=== PATIENT | female | born 1990 ===

== ENCOUNTER 2020-07-13 14:33 | Outpatient (CLI) | payer MEDICAID ==
[2020-07-13 15:39] VITALS: BP 106/63
[2020-07-13 18:17] LABS: Bacteria,Urine 4+ /HPF (Negative); Bilirubin,Urine NEG (Negative); Blood,Urine NEG (Negative); Color,Urine Yellow (Yellow); Protein,Urine <15 mg/dL mg/dL (Negative); Urobilinogen,Urine < 2.0 mg/dL (<2.0)
== END 2020-07-13 19:40 | disposition home or self-care (01) ==
LOC: TRG 14:33 → APU 14:35 → TRG 19:40
PROVIDERS: ATTEND Obstetrics & Gynecology
DX: O26.893 Other specified pregnancy related conditions, third trimester (principal); R10.9 Unspecified abdominal pain; Z3A.31 31 weeks gestation of pregnancy
CPT/HCPCS: 81001

== ENCOUNTER 2020-08-18 05:55 | Inpatient (IN) | payer MEDICAID ==
[2020-08-18] MEDS ORDERED: METOCLOPRAMIDE 10 MG/2 ML INJ IV ONE ×2 (06:51→13:00)
[2020-08-18] MEDS ORDERED: BICITRA ORAL LIQD 30ML PO ONE ×2 (06:51→13:00)
[2020-08-18] MEDS ORDERED: FAMOTIDINE 20 MG/2 ML INJ IV ONE ×2 (06:51→13:00)
[2020-08-18] MEDS ORDERED: LACTATED RINGERS 1,000 ML IV SCH (07:00)
[2020-08-18 07:38] LABS: Basophils % (Auto) 0.3 % (0.0-1.8); Eosinophils # (Auto) 0.1 K/mm3 (0.0-0.4); Eosinophils % (Auto) 1.1 % (0.0-4.3); Hematocrit 35.7 % (30.3-42.9); Hemoglobin 12.5 gm/dl (10.1-14.3); Lymphocytes # (Auto) 1.7 K/mm3 (1.2-5.4); Lymphocytes % (Auto) 19.9 % (13.4-35.0); Mean Corpuscular HGB Conc 35 % (30-34); Mean Corpuscular Volume 82 fl (79-97); Monocytes # (Auto) 0.6 K/mm3 (0.0-0.8); Monocytes % (Auto) 7.4 % (0.0-7.3); Platelet Count 318 K/mm3 (140-440); Red Blood Count 4.33 M/mm3 (3.65-5.03); Red Cell Distribution Width 15.1 % (13.2-15.2)
--- NOTE | 2020-08-18 10:11 | History and Physical Report ---
History of Present Illness Date of examination: 08/18/20 Date of admission: 08/18/20 09:20 Chief complaint: contractions, LOF, prior c/s x 2 History of present illness: 30 yo at 37w0d c/b prior c/s x 1, Class II Obesity presenting with contractions and leakage of fluid. Denies vaginal bleeding. +FM. Denies PIH symptoms. PNC at [facility] Past History Past Surgical History: section, other (hand surgery) Family/Genetic History: none Social history: no significant social history - Obstetrical History : 2 Para: 1 Hx # Term Pregnancies: 1 Number of Living Children: 1 Medications and Allergies Allergies Allergy/AdvReac Type Severity Reaction Status Date / Time Iodine and Iodide Containing AdvReac Swelling Verified 08/18/20 12:04 Produc Latex, Natural Rubber AdvReac Rash Verified 08/18/20 12:04 Active Meds: Active Medications Lactated Ringer's (Lactated Ringers) 1,000 mls @ 2,250 mls/hr IV PREOP [place] Stop: 08/19/20 07:27 Review of Systems All systems: negative (expect HPI) - Vital Signs Vital signs: Vital Signs Pulse BP 93 H 110/64 08/18/20 06:09 08/18/20 06:09 Temp Pulse Resp BP Pulse Ox 77 101/60 100 08/18/20 09:14 08/18/20 09:14 08/18/20 08:37 - Physical Exam Abdomen: Positive: normal appearance, normal bowel sounds - Obstetrical FHR: category 1 Uterine Contraction Monitor Mode: External Results Result Diagrams: 08/18/20 06:35 Abnormal lab results 08/18/20 Range/Units 06:35 MCHC 35 H (30-34) % [place] % (Auto) 7.4 H (0.0-7.3) % Seg Neutrophils % 71.3 H (40.0-70.0) % All other labs normal. Assessment and Plan - Patient Problems (1) H/O: Current Visit: Yes Status: Acute Plan to address problem: --s/p SROM --To OR for repeat c/s --Questions solicited and answered --Consented in the chart
[2020-08-18] MEDS ORDERED: ceFAZolin/Water 2 GM/20 ML 2 GM/20 ML SYRINGE IV NR (12:00)
[2020-08-18] MEDS ORDERED: ceFAZolin/Water 2 GM/20 ML 2 GM/20 ML SYRINGE IV ONE (12:07)
[2020-08-18] MEDS ORDERED: OXYTOCIN DRIP 30,000 MILLIUNITS/500 ML BAG IV ONE (12:08)
[2020-08-18] MEDS ORDERED: OXYTOCIN DRIP 0 MILLIUNITS/0 ML BAG IV ONE (12:08)
--- NOTE | 2020-08-18 12:36 | Anesthesia Day of Surgery ---
Anesthesia Day of Surgery - Day of Surgery Patient Examined: Yes Patient H&P Reviewed: Yes Patient is NPO: Yes
--- NOTE | 2020-08-18 12:36 | Anesthesia Consultation ---
Anesthesia Consult and Med Hx Date of service: 08/18/20 - Airway Anesthetic Teeth Evaluation: Good ROM Head & Neck: Adequate Mental/Hyoid Distance: Adequate Mallampati Class: Class II Intubation Access Assessment: Probably Good - Pulmonary Exam CTA: Yes - Cardiac Exam Cardiac Exam: RRR - Pre-Operative Health Status ASA Pre-Surgery Classification: ASA2 Proposed Anesthetic Plan: Spinal - Pulmonary Hx Asthma: No - Cardiovascular System Hx Hypertension: No - Central Nervous System Hx Seizures: No Hx Psychiatric Problems: Yes (PP DEPRESSION) - Endocrine Hx Renal Disease: No Hx Hypothyroidism: No Hx Hyperthyroidism: No - Hematic Hx Anemia: Yes Hx Sickle Cell Disease: No - Other Systems Hx Alcohol Use: No
[2020-08-18] MEDS ORDERED: KETOROLAC 30 MG/1 ML INJ ONE (12:43)
[2020-08-18] MEDS ORDERED: BUPIVACAINE/PF (0.5%) 5 MG/1 ML 30 ML VIAL INFILTRATI ONE (12:43)
[2020-08-18] MEDS ORDERED: dexAMETHasone 20 MG/5 ML VIAL ONE (12:43)
[2020-08-18] MEDS ORDERED: ONDANSETRON 4 MG/2 ML INJ ONE (12:43)
[2020-08-18] MEDS ORDERED: ceFAZolin/STERILE WATER 2 GM/20 ML SYRINGE IV ONE (13:40)
[2020-08-18] MEDS ORDERED: PHENYLEPHRINE/NS 1,000 MCG/10 ML SYRINGE (OR USE) IV ONE (13:56)
[2020-08-18] MEDS ORDERED: LACTATED RINGERS 1,000 ML ONE (14:01)
[2020-08-18] MEDS ORDERED: WATER FOR IRRIG STERILE 1,500 ML BOTTLE IR ONE (14:10)
[2020-08-18] MEDS ORDERED: SODIUM CHLORIDE 0.9% IRR 1,500 ML BOTTLE IR ONE (14:10)
[2020-08-18] MEDS ORDERED: HETASTARCH 6% 500 ML IV ONE (14:28)
[2020-08-18] MEDS ORDERED: LANOLIN/ZINC/DIMETHICONE (LANSINOH) 7 GM TP PRN (15:04)
[2020-08-18] MEDS ORDERED: NALOXONE 0.4 MG/1 ML INJ IV PRN (15:04)
[2020-08-18] MEDS ORDERED: SENNOSIDES 8.6 MG TAB PO PRN (15:04)
[2020-08-18] MEDS ORDERED: MAGNESIUM HYDROXIDE (MOM) ORAL LIQD UDC PO PRN (15:04)
[2020-08-18] MEDS ORDERED: PROMETHAZINE 25 MG RECT SUPP PR PRN (15:04)
[2020-08-18] MEDS ORDERED: MORPHINE 4 MG/1 ML INJ IV PRN (15:04)
[2020-08-18] MEDS ORDERED: ONDANSETRON 4 MG/2 ML INJ IV PRN (15:04)
[2020-08-18] MEDS ORDERED: HYDROCORTISONE 25 MG RECTAL SUPP PR PRN (15:04)
[2020-08-18] MEDS ORDERED: WITCH HAZEL/ GLYCERIN PAD TP PRN (15:04)
[2020-08-18] MEDS ORDERED: oxyCODONE /ACETAMINOPHEN 5-325MG TAB PO PRN (15:04)
[2020-08-18] MEDS ORDERED: SIMETHICONE 80 MG CHEW TAB PO PRN (15:04)
--- NOTE | 2020-08-18 15:04 | Procedure Note ---
OB Delivery Note - Delivery Date of Delivery: 08/18/20 Surgeon: ABHIJIT CANNON JR Estimated blood loss: 500cc - Section Preop diagnosis: repeat Postop diagnosis: same section procedure: section, repeat low transverse Disposition: PACU Complications: none Narrative: Indication: 30-year-old G2, P1001 at 37 weeks complicated by prior x1 and class II obesity presenting status post rupture of membranes repeat C- section. Findings: Normal uterus, tubes and ovaries. Clear fluid. No nuchal cord. Delivery of female infant at 1411 Weight 3461 g Apgars 07/04 EBL 500 cc Urine output 200 cc Intraoperative IV fluids 800 cc Procedure: Patient was taken to the operating room prepped and draped in the usual sterile fashion. Pfannenstiel skin incision was made and carried down to the underlying fascia. Fascia was incised and the incision was distended bilaterally. Rectus fascia was dissected off the rectus muscle superiorly and inferiorly. Peritoneum was identified and entered. Peritoneal incision extended superiorly and inferiorly. The bladder was visualized. The bladder blade was placed. Uterine hysterotomy incision was made and extended bilaterally. The baby was delivered in the typical vertex fashion. Baby was bulb suction at delivery. The cord was cut and clamped and handed off to the team. The placenta was delivered spontaneously. The uterus was exteriorized and cleared of all clots and debris. Uterine incision was closed with a 0 Vicryl in a running locked fashion. Good hemostasis was noted. The urine was noted to be clear. Uterus, tubes, and ovaries were returned to the abdominal cavity. Bilateral gutters were cleared and the abdomen and pelvis were irrigated. Good hemostasis noted. The rectus muscles reapproximated 2-0 Vicryl. Attention was directed towards the rectus fascia which was reapprox imated with 0 PDS in a running fashion. The subcutaneous tissue was irrigated and reapproximated with 2-0 Vicryl in a running fashion. Skin was closed with a 4-0 Vicryl in a subcuticular fashion. The procedure was completed and the patient tolerated the procedure well. All instruments and lap counts were correct x2. - A at 1 minute: 9 at 5 minutes: 9 Gender: Female
--- NOTE | 2020-08-18 15:29 | Post Anesthesia Evaluation ---
- Post Anesthesia Evaluation Patient Participated: Yes Airway Patent: Yes Stable Respiratory Function: Yes Nausea/Vomiting: No Temp > 96.8F: Yes Pain Manageable: Yes Adequeate Hydration: Yes Anesthesia Complications: No Block Receding Appropriately: Yes
--- NOTE | 2020-08-18 15:30 | Progress Note ---
Regional Anesthesia Block - Regional Anesthesia Block Start Time: 15:20 Stop Time: 15:25 Performed By:: BOBBI MORALES Procedure: U/S guided bilateral tap block performed for post-operative pain requested by Dr. Merrill. H&P & labs reviewed. Procedure explained, questions answered, consent obtained. Patient in the supine position with ekg, blood pressure cuff and pulse ox on and working in PACU. Timeout performed immediately before start of procedure. Probe placed in the mid-axillary line and the external oblique, internal oblique, and transverse abdominus muscles identified. Skin was cleansed with 0.5% Chlorahexadine and allowed to dry. A 4" 20 G Miranda echogenic needle was advanced in plane until the tip was in the fascial plane between the internal oblique and the transverse abdominus. After negative aspiration 35 ml/side of [30 ml 0.5% Bupivacaine], [50 mcg dexmedetomidine], [10 mg dexamethasone], and [40 ml sterile saline] was injected in 5 ml increments with negative aspiration in between. Patient tolerated procedure well.
[2020-08-18] MEDS ORDERED: OXYTOCIN DRIP 30 UNITS/500 ML BAG IV SCH (16:00)
[2020-08-18 17:52] LABS: Amphetamine Screen,Urine Negative; Benzodiazepines Screen,Urine Negative; Cannabinoid Screen,Urine Negative; Cocaine Screen,Urine Negative; Methadone Screen,Urine Negative; Opiate Screen,Urine Negative
[2020-08-18 17:57] LABS: Bilirubin,Urine NEG (Negative); Blood,Urine SM (Negative); Color,Urine Yellow (Yellow); Protein,Urine <15 mg/dL mg/dL (Negative); Urobilinogen,Urine < 2.0 mg/dL (<2.0)
[2020-08-18] MEDS ORDERED: KETOROLAC 30 MG/1 ML INJ IV SCH (19:00)
[2020-08-18 20:25] LABS: Hepatitis C Virus Antibody Non-Reactive (NonReactive)
[2020-08-19] MEDS: IBUPROFEN 800 MG TAB PO PRN ×3 (06:00→18:26)
[2020-08-19 06:36] LABS: Hematocrit 30.9 % (30.3-42.9); Hemoglobin 10.2 gm/dl (10.1-14.3)
--- NOTE | 2020-08-19 13:39 | Progress Note ---
Assessment and Plan A: /postop day 1 S/P repeat LTCS. Anemia. P: Supplement with iron. Encouraged ambulation. Continue current management. Subjective - Subjective Date of service: 08/19/20 Principal diagnosis: day 1 S/P repeat LTCS Patient reports: appetite normal, voiding normally, flatus, ambulating normally, no dizzy ambulation, no nauseated : doing well Objective - Vital Signs Latest vital signs: Vital Signs Temp Pulse Resp BP BP Pulse Ox 08/19/20 12:35 98.5 F 94 H 18 101/58 96 08/19/20 08:11 98.7 F 91 H 18 90/50 95 08/19/20 06:00 16 08/19/20 05:01 98.2 F 86 20 101/63 97 08/19/20 00:52 16 08/18/20 23:51 98.0 F 102 H 20 96/55 94 08/18/20 22:12 16 08/18/20 22:06 98.5 F 79 18 93/48 95 08/18/20 16:44 97.3 F L 73 16 106/64 98 08/18/20 16:00 97.7 F 68 21 105/58 99 08/18/20 15:45 72 18 108/56 98 08/18/20 15:30 68 16 100/54 98 08/18/20 15:10 85 18 98/47 98 08/18/20 15:07 98.2 F 70 18 96/52 98 Intake and Output 08/18/20 08/19/20 08/19/20 23:59 07:59 15:59 Intake Total 340 240 480 Output Total 1000 1999 Balance -660 -1760 480 Intake: IV 100 Oral 480 Intake, Free Water 240 240 Output: Urine 1000 1999 Indwelling Catheter 900 1300 Void 700 Other: Total, Intake Amount 240 Total, Output Amount 900 700 - Exam Cardiovascular: Present: Regular rate, No murmurs Lungs: Present: Clear to auscultation Abdomen: Present: normal appearance, soft, normal bowel sounds. Absent: distention, tenderness, guarding, rigidity Uterus: Present: normal, firm, fundal height below umbilicus. Absent: bogginess, tenderness Extremities: Present: normal, edema (mild pedal edema bilaterally). Absent: tenderness Incision: Present: normal, dry, dressed - Labs Labs: Abnormal lab results 08/18/20 Range/Units 17:20 Urine pH 8.0 H (5.0-7.0)
[2020-08-19] MEDS: oxyCODONE /ACETAMINOPHEN 5-325MG TAB PO PRN ×2 (16:26→22:19)
[2020-08-20] MEDS: IBUPROFEN 800 MG TAB PO PRN ×3 (01:48→22:35)
[2020-08-20] MEDS: oxyCODONE /ACETAMINOPHEN 5-325MG TAB PO PRN ×3 (05:02→19:22)
[2020-08-20] MEDS ORDERED: FERROUS SULFATE 325 MG TAB PO SCH (10:00)
--- NOTE | 2020-08-20 10:55 | Progress Note ---
Assessment and Plan A: POD # 2 Stable P: Follow Routine PostOp Orders D/C Home in the AM RTO in One Week Subjective - Subjective Date of service: 08/20/20 Principal diagnosis: day 1 S/P repeat LTCS Patient reports: appetite normal, voiding normally, flatus, pain poorly controlled, ambulating normally [place]: doing well, bottle feeding Objective - Vital Signs Latest vital signs: Vital Signs Temp Pulse Resp BP Pulse Ox 08/20/20 08:15 98.9 F 68 20 92/47 08/20/20 06:02 18 08/20/20 05:02 18 08/20/20 02:48 18 08/20/20 01:48 18 08/20/20 01:00 98.1 F 94 H 20 95/94 94 08/19/20 23:19 18 08/19/20 22:19 18 08/19/20 19:26 18 08/19/20 16:15 98.6 F 92 H 18 106/70 98 08/19/20 12:35 98.5 F 94 H 18 101/58 96 Intake and Output 08/19/20 08/20/20 08/20/20 22:59 06:59 14:59 Intake Total 240 480 240 Balance 240 480 240 Intake: Oral 240 240 Intake, Free Water 480 Other: Total, Intake Amount 240 240 # Voids Void 1 1 - Exam Breasts: Present: normal Cardiovascular: Present: Regular rate Lungs: Present: Clear to auscultation, Normal air movement Abdomen: Present: normal appearance, soft, normal bowel sounds Uterus: Present: normal, firm, fundal height below umbilicus Extremities: Present: normal Incision: Present: normal, dry, intact
--- NOTE | 2020-08-20 10:56 | Discharge Summary ---
Providers - Providers Date of Admission: 08/18/20 09:20 Date of discharge: 08/20/20 Attending physician: ABHIJIT CANNON JR, MD Primary care physician: ABHIJIT CANNON JR, MD Hospitalization Reason for admission: section, rupture of membranes Delivery: Procedure: repeat low transverse Episiotomy: none Laceration: none Incision: normal, dry, intact Other procedures: none complications: none Discharge diagnosis: IUP at term delivered [place] baby: female Condition at discharge: Good Disposition: DC-01 TO HOME OR SELFCARE Plan - Discharge Medications Prescriptions: Ibuprofen [Motrin 800 MG tab] 800 mg PO Q6H PRN #30 tablet PRN Reason: Pain, Mild (1-3) oxyCODONE /ACETAMINOPHEN [Percocet 5/325 mg] 1 tab PO Q6H PRN #30 tablet PRN Reason: Pain, Moderate (4-6) - Provider Discharge Summary Activity: routine, no sex for 6 weeks, no heavy lifting 4 weeks, no strenuous exercise Diet: routine Instructions: routine Additional instructions: [] Smoking cessation referral if applicable(refer to patient education folder for contact #) [] Refer to [facility] Booklet Call your doctor immediately for: * Fever > 100.5 * Heavy vaginal bleeding ( >1 pad per hour) * Severe persistent headache * Shortness of breath * Reddened, hot, painful area to leg or breast * Drainage or odor from incision. * Keep incision clean and dry at all times and follow doctor's instructions regarding bathing/showering - Follow up plan Follow up: ABHIJIT CANNON JR, MD [Primary Care Provider] - 7 Days
[2020-08-20 17:47] VITALS: BP 101/59
[2020-08-21] MEDS ORDERED: IBUPROFEN 800 MG TAB ONE (05:30)
[2020-08-21] MEDS ORDERED: HYDROcodone/ACETAMINOPHEN 5-325 MG TAB ONE (05:30)
== END 2020-08-21 17:00 | disposition home or self-care (01) | DRG 766 ==
LOC: APU 05:55 → TRG 05:55 → APU 09:20 → OB 16:43
PROVIDERS: ADMIT Obstetrics & Gynecology; ATTEND Obstetrics & Gynecology
PROC: 10D00Z1 Extraction of Products of Conception, Low, Open Approach (ICD-10-PCS; principal; 2020-08-18)
DX: O34.211 Maternal care for low transverse scar from previous cesarean delivery (principal); Z37.0 Single live birth; Z20.828 Contact with and (suspected) exposure to other viral communicable diseases; O99.214 Obesity complicating childbirth; E66.9 Obesity, unspecified; Z91.041 Radiographic dye allergy status; Z91.040 Latex allergy status; Z3A.37 37 weeks gestation of pregnancy; O90.81 Anemia of the puerperium; D64.9 Anemia, unspecified
CPT/HCPCS: 36415; 80307; 81001; 85014; 85018; 85025; 86592; 86706; 86762; 86803; 86850; 86900; 86901; 87086; 87806; G0378; A6250; J0690; J1100; J1885; J2270; J2370; J2405; J2765; J3490; J7120; U0003